=== PATIENT | male | born 1975 | race Hispanic/Latino ===

== ENCOUNTER 2020-10-03 12:33 | Emergency (ER) | payer SELFPAY ==
[~2020-10-03] VITALS: Ht 167.6 cm; Wt 77.2 kg
[2020-10-03 14:43] LABS: URINE BILIRUBIN - DIPSTICK NEGATIVE (NEGATIVE); URINE BLOOD DIPSTICK NEGATIVE (NEGATIVE); URINE COLOR YELLOW; URINE GLUCOSE - DIPSTICK NEGATIVE (NEGATIVE); URINE KETONE NEGATIVE (NEGATIVE); URINE LEUK ESTERASE NEGATIVE (NEGATIVE); URINE NITRITE - DIPSTICK NEGATIVE (Negative); URINE PROTEIN - DIPSTICK NEGATIVE (NEG-TRACE); URINE SPECIFIC GRAVITY >=1.030; URINE UROBILINOGEN - DIPSTICK 0.2 E.U./dL (0.2)
[2020-10-03] MEDS ORDERED: FLEXERIL5 M1 PO (15:15)
[2020-10-03] MEDS ORDERED: TORADOL PO (15:15)
[2020-10-03 15:26] VITALS: BP 132/77
== END 2020-10-03 15:27 | disposition home or self-care (01) | DRG 563 ==
LOC: ED 12:33
PROVIDERS: Emergency Medicine
DX: S39.012A Strain of muscle, fascia and tendon of lower back, initial encounter (principal); X50.0XXA Overexertion from strenuous movement or load, initial encounter